=== PATIENT | female | born 1975 | race Caucasian/White ===

== ENCOUNTER 2022-02-04 12:11 | Emergency (ER) | payer MEDICAID, OTHER ==
[~2022-02-04] VITALS: Ht 157.5 cm; Wt 74.8 kg
[2022-02-04 12:20] VITALS: BP 140/90
== END 2022-02-04 12:45 | disposition home or self-care (01) ==
LOC: ER 12:21
DX: U07.1 COVID-19 (principal)
CPT/HCPCS: 99283; U0003